=== PATIENT | male | born 1990 | race African-American/Black ===

== ENCOUNTER 2016-12-09 10:37 | Emergency (ER) | payer SELFPAY ==
[~2016-12-09] VITALS: Ht 170.2 cm; Wt 81.5 kg
[2016-12-09 10:39] VITALS: BP 115/60; PULSE 68; RESP 24; O2SAT 98
[2016-12-09 11:27] VITALS: TEMP 98.2
[2016-12-09] MEDS ORDERED: ONDANSETRON ODT 4 MG TAB PO ONE (11:30)
[2016-12-09 12:11] LABS: AUTOMATED NEUTROPHIL # 11.2 TH/MM3 (1.8-7.7); BASOPHIL % 0.2 % (0.0-2.0); EOSINOPHIL % 0.2 % (0.0-4.0); HEMATOCRIT 47.1 % (39.0-51.0); HEMO FLAGS DIFF FINAL; LYMPH % 11.1 % (9.0-44.0); LYMPHOCYTE # 1.5 TH/MM3 (1.0-4.8); MEAN CELL VOLUME 86.4 FL (80.0-100.0); MEAN CORPUSCULAR HEMOGLOBIN 29.9 PG (27.0-34.0); MEAN CORPUSCULAR HGB CONC 34.6 % (32.0-36.0); MONO % 3.9 % (0.0-8.0); NEUT % 84.6 % (16.0-70.0); PLATELET COUNT 207 TH/MM3 (150-450); RED BLOOD COUNT 5.45 MIL/MM3 (4.50-5.90); RED CELL DISTRIBUTION WIDTH 13.2 % (11.6-17.2); WHITE BLOOD COUNT 13.2 TH/MM3 (4.0-11.0)
[2016-12-09 12:26] LABS: ANION GAP 9 MEQ/L (5-15); AST (GOT) 23 U/L (15-37); BICARBONATE 20.5 MEQ/L (21.0-32.0); BLOOD UREA NITROGEN 12 MG/DL (7-18); CHLORIDE 107 MEQ/L (98-107); GLOMERULAR FILTRATION RATE 82 ML/MIN (>89); POTASSIUM 3.4 MEQ/L (3.5-5.1); SODIUM (NA) 136 MEQ/L (136-145)
[2016-12-09 12:28] LABS: ALT (GPT) 23 U/L (12-78)
[2016-12-09 12:29] LABS: ALKALINE PHOSPHATASE 60 U/L (45-117); TOTAL BILIRUBIN ADULT 1.3 MG/DL (0.2-1.0)
--- NOTE | 2016-12-09 15:14 | PD ---
HPI Chief Complaint: Abdominal Pain Time Seen by Provider: 14:10 Travel History International Travel<30 days: No Contact w/Intl Traveler<30days: No Traveled to known affect area: No History of Present Illness HPI Patient is a 26-year-old male presenting to the emergency evaluation of abdominal pain, nausea and vomiting. Patient states 8 AM this morning he had a sharp pain in his left testicle it radiated up to the left lower quadrant. The pain was so significant that it caused him to feel nauseated and he was vomiting. Patient states that he vomited all morning until receiving Zofran in the emergency department. Patient has had recent unprotected sex however he has had the same partner for the last 1-2 months. Patient denies any dysuria, fever, chills, discharge. PFSH Past Medical History Medical History: Denies Significant Hx Past Surgical History Surgical History: No Previous Surgery Social History Alcohol Use: No Tobacco Use: Yes (1 PPD) Substance Use: No Allergies-Medications (Allergen,Severity, Reaction): Coded Allergies: No Known Allergies (Verified , 12/09/16) Reported Meds & Prescriptions Reported Meds & Active Scripts Active Review of Systems Except as stated in HPI: all other systems reviewed are Neg General / Constitutional: No: Fever HENT: No: Headaches Cardiovascular: No: Chest Pain or Discomfort Respiratory: No: Shortness of Breath Gastrointestinal: Positive: Nausea, Vomiting, Abdominal Pain Genitourinary: Positive: Pelvic Pain, Other (left testicle pain), No: Dysuria Physical Exam Narrative GENERAL: Well-developed, well-nourished, alert male. Resting comfortably in no acute distress. SKIN: Warm and dry. HEAD: Atraumatic. Normocephalic. EYES: Pupils equal and round. No scleral icterus. No injection or drainage. ENT: No nasal bleeding or discharge. Mucous membranes pink and moist. NECK: Trachea midline. No JVD. CARDIOVASCULAR: Regular rate and rhythm. RESPIRATORY: No accessory muscle use. Clear to auscultation. Breath sounds equal bilaterally. GASTROINTESTINAL: Abdomen soft, non-tender, nondistended. Hepatic and splenic margins not palpable. MUSCULOSKELETAL: Extremities without clubbing, cyanosis, or edema. No obvious deformities. GENITOURINARY: Circumcised. Testes descended bilaterally without evidence of rotation. No lesions or erythema. No urethral discharge. NEUROLOGICAL: Awake and alert. No obvious cranial nerve deficits. Motor grossly within normal limits. Five out of 5 muscle strength in the arms and legs. Normal speech. PSYCHIATRIC: Appropriate mood and affect; insight and judgment normal. Data Data Last Documented VS Vital Signs Date Time Temp Pulse Resp B/P Pulse Ox O2 Delivery O2 Flow Rate FiO2 12/09/16 11:27 98.2 12/09/16 10:39 68 24 115/60 98 Room Air Orders Ondansetron Odt (Zofran Odt) (12/09/16 11:30) Complete Blood Count With Diff (12/09/16 11:36) Comprehensive Metabolic Panel (12/09/16 11:36) Urinalysis - C+S If Indicated (12/09/16 11:36) Lipase (12/09/16 11:36) Us Testicles W Doppler (12/09/16 ) Urine Culture (12/09/16 15:10) Gc And Chlamydia Pcr (12/09/16 16:07) Azithromycin (Zithromax) (12/09/16 16:15) Ceftriaxone Inj (Rocephin Inj) (12/09/16 16:15) Lidocaine 1% Inj (50 Ml) (Xylocaine 1% I (12/09/16 16:15) Labs Laboratory Tests Test 12/09/16 12/09/16 11:50 15:10 White Blood Count 13.2 TH/MM3 Red Blood Count 5.45 MIL/MM3 Hemoglobin 16.3 GM/DL Hematocrit 47.1 % Mean Corpuscular Volume 86.4 FL Mean Corpuscular Hemoglobin 29.9 PG Mean Corpuscular Hemoglobin 34.6 % Concent Red Cell Distribution Width 13.2 % Platelet Count 207 TH/MM3 Mean Platelet Volume 8.7 FL Neutrophils (%) (Auto) 84.6 % Lymphocytes (%) (Auto) 11.1 % Monocytes (%) (Auto) 3.9 % Eosinophils (%) (Auto) 0.2 % Basophils (%) (Auto) 0.2 % Neutrophils # (Auto) 11.2 TH/MM3 Lymphocytes # (Auto) 1.5 TH/MM3 Monocytes # (Auto) 0.5 TH/MM3 Eosinophils # (Auto) 0.0 TH/MM3 Basophils # (Auto) 0.0 TH/MM3 CBC Comment DIFF FINAL Differential Comment Sodium Level 136 MEQ/L Potassium Level 3.4 MEQ/L Chloride Level 107 MEQ/L Carbon Dioxide Level 20.5 MEQ/L Anion Gap 9 MEQ/L Blood Urea Nitrogen 12 MG/DL Creatinine 1.30 MG/DL Estimat Glomerular Filtration 82 ML/MIN Rate Random Glucose 115 MG/DL Calcium Level 9.3 MG/DL Total Bilirubin 1.3 MG/DL Aspartate Amino Transf 23 U/L (AST/SGOT) Alanine Aminotransferase 23 U/L (ALT/SGPT) Alkaline Phosphatase 60 U/L Total Protein 7.6 GM/DL Albumin 4.2 GM/DL Lipase 74 U/L Urine Color YELLOW Urine Turbidity HAZY Urine pH 6.0 Urine Specific [place] 1.023 Urine Protein 30 mg/dL Urine Glucose (UA) NEG mg/dL Urine Ketones 10 mg/dL Urine Occult Blood MOD Urine Nitrite NEG Urine Bilirubin NEG Urine Urobilinogen 4.0 MG/DL Urine Leukocyte Esterase SMALL Urine RBC 130 /hpf Urine WBC 9 /hpf Urine Squamous Epithelial <1 /hpf Cells Urine Bacteria RARE /hpf Urine Mucus FEW /lpf Microscopic Urinalysis Comment CULTURE INDICATED MDM Medical Decision Making Medical Screen Exam Complete: Yes Emergency Medical Condition: Yes Interpretation(s) Vital Signs Date Time Temp Pulse Resp B/P Pulse Ox O2 Delivery O2 Flow Rate FiO2 12/09/16 11:27 98.2 12/09/16 10:39 68 24 115/60 98 Room Air Differential Diagnosis UTI vs STD vs Torsion vs other Narrative Course Patient is a 26-year-old male that presented to emergency for evaluation of left testicle pain that radiated to his groin onset was abrupt at 8:00 this morning. He presented with nausea and vomiting, he was protocoled in triage and given Zofran which alleviated the vomiting. Patient's vital signs are stable, labs pending. IV access established. Differential includes testicular torsion, kidney stone, urinary tract infection, STD. CBC with a white count of 13.2 K+ 3.4 UA 130 rbc, 9 WBC, rare bacteria, mod occult blood The amount of blood in the urine could be secondary to passing of a kidney stone this morning, renal function is normal. However reflex urine culture is pending. Ultrasound of the testicles was negative for acute abnormality. Patient was treated empirically for STDs, GC and chlamydia are pending. Pt will be prescribed abx for presumed uti. He was given strict return precautions. Plan of care discussed with my attending physician. Pt was advised that he would be notified of test results. He was encouraged to avoid sexual intercourse until test for GC and chlamydia are available. Pt verbalized understanding. Pt is stable for discharge. Diagnosis Primary Impression: UTI (urinary tract infection) Qualified Code: N39.0 - Urinary tract infection with hematuria, site unspecified Referrals: [facility] Primary Care Physician Patient Instructions: General Instructions, Urinary Tract Infection in Men (ED) Additional Instructions: Complete full course of antibiotics as prescribed Return to emergency department immediately for any new or worsening symptoms Follow-up with your primary doctor Avoid sexual intercourse until you receive test results Med/Other Pt SpecificInfo: Prescription(s) given Scripts Ondansetron Odt (Zofran Odt)4 Mg Tab4 Mg SL Q6HR PRN (Nausea/Vomiting) 3 Days Ref 0 Prov:Nat Edwards 12/09/16 Cephalexin (Keflex)500 Mg [id number] Mg PO Q12H 7 Days Ref 0 Prov:Nat Edwards 12/09/16 Disposition: 01 DISCHARGE HOME Condition: Stable Nat Edwards Dec 09, 2016 15:14
[2016-12-09 15:53] LABS: BACTERIA, URINE RARE /hpf; BLOOD, URINE MOD (NEG); COMMENT (UR) CULTURE INDICATED; CULTURE IF INDICATED CULTURE INDICATED; GLUCOSE,URINE NEG (NEG); KETONE, URINE 10 mg/dL (NEG); MUCUS URINE FEW /lpf (OCC); NITRITE,URINE NEG (NEG); SQUAMOUS EPITHELIAL CELL URINE <1 /hpf (0-5); URINE COLOR YELLOW (YELLW/STRAW)
--- NOTE | 2016-12-09 15:56 | RADRPT ---
EXAM DATE/TIME: 12/09/2016 14:43 [facility] COMPARISON: No previous studies available for comparison. INDICATIONS : Testicular pain. MEDICAL HISTORY : Testicular pain. SURGICAL HISTORY : None. ENCOUNTER: Initial ACUITY: 1 day PAIN SCORE: 5/10 LOCATION: Bilateral scrotum. MEASUREMENTS: RIGHT TESTICLE: 3.0 x 2.6 x 3.6cm LEFT TESTICLE: 2.6 x 2.3 x 3.7cm FINDINGS: RIGHT TESTICLE: Homogeneous echotexture without intra or extratesticular mass. Blood flow is symmetric and within no rmal limits. Small hydrocele. Epididymis is within normal limits. LEFT TESTICLE: Homogeneous echotexture without intra or extratesticular mass. Blood flow is symmetric and within no rmal limits. No hydrocele or varicocele. 17 mm epididymal cyst. SCROTUM: Within normal limits. CONCLUSION: Normal testicles Minesh Baez MD on December 09, 2016 at 15:53 Board Certified Radiologist. This report was verified electronically.
[2016-12-09] MEDS ORDERED: AZITHROMYCIN 250 MG TAB PO ONE (16:15)
[2016-12-09] MEDS ORDERED: cefTRIAXone 250 MG VIAL IM ONE (16:15)
[2016-12-09] MEDS ORDERED: LIDOCAINE HCL 1% 50 ML VIAL XX ONE (16:15)
[2016-12-09] MEDS ORDERED: ZOFR4TAB3 SL (16:58)
[2016-12-09] MEDS ORDERED: CEPH-460 PO (16:58)
[2016-12-09] MEDS ORDERED: LIDOCAINE HCL 1% PF 30 ML VIAL OTHER ONE (17:45)
[2016-12-09 17:48] VITALS: BP_SYST 117; PULSE 62; RESP 16; TEMP 98.3; O2SAT 95
[2016-12-09 19:41] LABS: CHLAMYDIA PCR NOT DETECTED (NOT DETECT); NEISSERIA PCR NOT DETECTED (NOT DETECT)
== END 2016-12-09 17:51 | disposition home or self-care (01) ==
LOC: NEPD 10:37
DX: N39.0 Urinary tract infection, site not specified (principal); F17.200 Nicotine dependence, unspecified, uncomplicated
CPT/HCPCS: 76870; 80053; 81001; 83690; 85025; 87086; 87491; 87591; 93975; 96372; 99285; J0696

== ENCOUNTER 2017-05-18 16:50 | Emergency (ER) | payer SELFPAY ==
[~2017-05-18] VITALS: Ht 170.2 cm; Wt 81.8 kg
[~2017-05-18 16:50] MED LIST: CEPH-460 PO; ZOFR4TAB3 SL
[2017-05-18 16:52] VITALS: BP 134/80; PULSE 86; RESP 14; TEMP 97.9; O2SAT 99
--- NOTE | 2017-05-18 17:51 | PD ---
HPI Chief Complaint: Cold / Flu Symptoms Time Seen by Provider: 17:32 Travel History International Travel<30 days: No Contact w/Intl Traveler<30days: No Traveled to known affect area: No History of Present Illness HPI 27-year-old male presents to the emergency room requesting a note to go back to work. Patient called into work May 16 because he had an upper respiratory infection. States his symptoms started mid last week; he is improving now but they will not let him work until he gets a work note. History Social History Alcohol Use: No Tobacco Use: Yes (1 PPD) Allergies-Medications (Allergen,Severity, Reaction): Coded Allergies: No Known Allergies (Verified , 12/09/16) Reported Meds & Prescriptions Reported Meds & Active Scripts Active Zofran Odt (Ondansetron Odt) 4 Mg Tab 4 Mg SL Q6HR PRN 3 Days Keflex (Cephalexin) 500 Mg Cap 500 Mg PO Q12H 7 Days Review of Systems Except as stated in HPI: all other systems reviewed are Neg Physical Exam Narrative GENERAL: Well-nourished, well-developed male in no acute distress. Afebrile. Ambulatory. SKIN: Focused skin assessment warm/dry. HEAD: Normocephalic. EYES: No scleral icterus. No injection or drainage. ENT: Mucosa pink and moist. Mild erythema of pharynx without edema or exudates. No uvular edema. No uvular, palatal, or tonsillar deviation. Airway patent. Nasal turbinates appear normal without nasal blood, purulent drainage or septal hematoma. EARS: Bilateral pinnae and external canals appear within normal limits. Bilateral tympanic membranes without erythema, dullness or perforation. NECK: Supple, trachea midline. No JVD or lymphadenopathy. CARDIOVASCULAR: Regular rate and rhythm without murmurs, gallops, or rubs. RESPIRATORY: Breath sounds equal bilaterally. No accessory muscle use. No crackles, rales, wheezes, or rhonchi. Data Data Last Documented VS Vital Signs Date Time Temp Pulse Resp B/P (MAP) Pulse Ox O2 Delivery O2 Flow Rate FiO2 05/18/17 16:52 97.9 86 14 134/80 (98) 99 MDM Medical Screen Exam Complete: Yes Emergency Medical Condition: No Differential Diagnosis URI Narrative Course 27-year-old male presents to the emergency room requesting a note to return to work. Patient called off May 16 because he has been sick with upper respiratory infection since last week. States symptoms are improving. Patient is well-appearing. He is sniffling occasionally coughing occasionally. His throat is mildly erythematous. Likely has a resolving upper respiratory infection. He was informed that we do not provide work notes in the emergency room but to follow up with [facility]. There are no urgent or emergent medical conditions at this time. A medical screening exam was performed: At the time of evaluation the presenting medical condition was determined not to be of an emergent nature. The patient was given the option of receiving additional care, but declined. Patient was given options for additional community resources from which to obtain care. The Patient Has Been advised to seek medical attention for their presenting complaint. The patient has been advised to return to the ER at any time if an emergent condition develops. Primary Impression: Encounter for medical screening examination Disposition: 01 DISCHARGE HOME Condition: Stable Jane Manzano May 18, 2017 17:51
== END 2017-05-18 17:50 | disposition left against medical advice (07) ==
LOC: NEPK 16:50
DX: R05 Cough (principal); Z72.0 Tobacco use
CPT/HCPCS: 99281

== ENCOUNTER 2017-07-16 16:16 | Emergency (ER) | payer SELFPAY ==
[~2017-07-16] VITALS: Ht 170.2 cm; Wt 82.0 kg
[2017-07-16 16:33] VITALS: BP 123/82; PULSE 110; RESP 16; TEMP 99; O2SAT 98
[2017-07-16] MEDS ORDERED: traMADol HCL 50 MG TAB PO ONE (20:30)
[2017-07-16] MEDS ORDERED: TRAM50TA PO (20:39)
[2017-07-16] MEDS ORDERED: PENI500T PO (20:39)
--- NOTE | 2017-07-16 20:39 | PD ---
HPI Chief Complaint: Facial Pain or Swelling Time Seen by Provider: 20:29 Travel History International Travel<30 days: No Contact w/Intl Traveler<30days: No Traveled to known affect area: No History of Present Illness HPI Patient is a 27-year-old male comes in complaining of left-sided facial and dental pain. He says he has had a broken tooth for years, but it is only recently started hurting him. He says in the past few days is gotten worse and today the left side of his face was swollen. He denies fever chills. He has not had any leakage of fluid inside his mouth. He denies any difficulty breathing or swallowing. He has not taken anything for pain. Severity is mild to moderate. PFSH Past Medical History Medical History: Denies Significant Hx Past Surgical History Surgical History: No Previous Surgery Social History Alcohol Use: No Tobacco Use: Yes (1 PPD) Substance Use: Yes (marijuana) Allergies-Medications (Allergen,Severity, Reaction): Coded Allergies: No Known Allergies (Verified Adverse Reaction, Unknown, 07/16/17) Reported Meds & Prescriptions Reported Meds & Active Scripts Active Zofran Odt (Ondansetron Odt) 4 Mg Tab 4 Mg SL Q6HR PRN 3 Days Keflex (Cephalexin) 500 Mg Cap 500 Mg PO Q12H 7 Days Review of Systems General / Constitutional: No: Fever, Chills HENT: Positive: Dental Difficulties, No: Sore Throat Cardiovascular: No: Chest Pain or Discomfort Respiratory: No: Shortness of Breath Gastrointestinal: No: Nausea, Vomiting Musculoskeletal: No: Myalgias Skin: No Rash, No Change in Pigmentation Neurologic: No: Weakness, Dizziness Physical Exam Narrative GENERAL: Awake and alert, in no acute distress. SKIN: Focused skin assessment warm/dry. No wounds or signs of infection. HEAD: Atraumatic. Normocephalic. EYES: Pupils equal and round. No scleral icterus. ENT: Mucous membranes pink and moist. Broken tooth upper left jaw. No abscess. CARDIOVASCULAR: Regular rate and rhythm. No murmur appreciated. RESPIRATORY: No accessory muscle use. Clear to auscultation. Breath sounds equal bilaterally. MUSCULOSKELETAL: No obvious deformities. No clubbing. No cyanosis. No edema. NEUROLOGICAL: Awake and alert. No obvious cranial nerve deficits. Motor grossly within normal limits. Normal speech. PSYCHIATRIC: Appropriate mood and affect; insight and judgment normal. Data Data Last Documented VS Vital Signs Date Time Temp Pulse Resp B/P (MAP) Pulse Ox O2 Delivery O2 Flow Rate FiO2 07/16/17 16:33 99.0 110 16 123/82 (96) 98 Orders Orders Tramadol (Ultram) (07/16/17 20:30) MDM Medical Decision Making Medical Screen Exam Complete: Yes Emergency Medical Condition: Yes Medical Record Reviewed: Yes Differential Diagnosis broken tooth vs dental infection vs abscess Narrative Course Patient is a 27-year-old male comes in complaining of dental pain. Exam shows a broken tooth, no signs of abscess. Patient given pain medicine. He will be discharged with prescription for tramadol and penicillin. Advised follow-up with the dentist. Advised to return to the ED as needed for any worsening symptoms. Diagnosis Primary Impression: Broken tooth Qualified Codes: S02.5XXA - Fracture of tooth (traumatic), initial encounter for closed fracture Patient Instructions: General Instructions, Toothache (ED) Additional Instructions: Take all of your antibiotic. Follow-up with the dentist. Take pain medicine as needed. Return to the ED as needed for any worsening symptoms. Scripts Tramadol (Tramadol) 50 Mg Tab 50 MG PO Q6H Y for PAIN, #10 TAB 0 Refills Prov: Christine Tomlin MD 07/16/17 Penicillin V Potassium (Penicillin V Potassium) 500 Mg Tab 500 MG PO Q6H for Infection for 7 Days, #28 TAB 0 Refills Prov: Christine Tomlin MD 07/16/17 Disposition: 01 DISCHARGE HOME Condition: Stable Christine Tomlin MD Jul 16, 2017 20:39
== END 2017-07-16 21:25 | disposition home or self-care (01) ==
LOC: NEPD 16:16
DX: S02.5XXA Fracture of tooth (traumatic), initial encounter for closed fracture (principal); F17.210 Nicotine dependence, cigarettes, uncomplicated; X58.XXXA Exposure to other specified factors, initial encounter; Z79.899 Other long term (current) drug therapy
CPT/HCPCS: 99283